=== PATIENT | female | born 1965 | race Caucasian/White ===

== ENCOUNTER 2017-08-30 20:57 | Observation (INO) | payer OTHER ==
[~2017-08-30] VITALS: Ht 160 cm; Wt 80.0 kg
[2017-08-30] MEDS ORDERED: ASPIRIN 81 MG TAB.CHEW ONE (21:00)
[2017-08-30 21:49] LABS: BASO # 0.1 x10^3/uL (0.0-0.2); BASO % 1 % (0-3); EOS # 0.3 x10^3/uL (0.0-0.7); EOS % 4 % (0-3); HEMATOCRIT 41.4 % (36.0-47.0); HEMOGLOBIN 14.2 g/dL (12.0-15.5); LYMPH % 32 % (24-48); MEAN CORPUSCULAR HEMOGLOBIN 31 pg (25-35); MEAN CORPUSCULAR HGB CONC 34 g/dL (31-37); MEAN CORPUSCULAR VOLUME 91 fL (79-100); MONO # 0.8 x10^3/uL (0.0-1.1); MONO % 8 % (0-9); NEUT % 54 % (31-73); PLATELET COUNT 289 x10^3/uL (140-400); RED BLOOD COUNT 4.55 x10^6/uL (3.50-5.40); RED CELL DISTRIBUTION WIDTH 13.3 % (11.5-14.5); WHITE BLOOD COUNT 9.3 x10^3/uL (4.0-11.0)
[2017-08-30 22:00] LABS: BILIRUBIN,URINE NEG (NEG); CLARITY,URINE CLEAR; COLOR,URINE YELLOW; GLUCOSE,URINE NEG (NEG)
[2017-08-30 22:01] LABS: BACTERIA,URINE FEW /HPF (0-FEW); NITRITE,URINE NEG (NEG); RBC,URINE RARE /HPF (0-2); SQUAMOUS EPITHELIAL CELL,UR OCC /LPF; UROBILINOGEN,URINE 1 mg/dL (0.2 mg/dL); WBC,URINE OCC /HPF (0-4)
[2017-08-30 22:04] LABS: ALBUMIN/GLOBULIN RATIO 1.1 (1.0-1.7); CALCIUM 8.8 mg/dL (8.5-10.1); CREATININE 0.7 mg/dL (0.6-1.0); GFR 87.2; TOTAL BILIRUBIN 0.3 mg/dL (0.2-1.0); TOTAL PROTEIN 7.7 g/dL (6.4-8.2)
[2017-08-30 22:10] LABS: POTASSIUM 3.5 mmol/L (3.5-5.1)
--- NOTE | 2017-08-30 22:11 | EKG ---
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
--- NOTE | 2017-08-30 22:37 | PHYS DOC ---
General Chief Complaint: CHEST PAIN Stated Complaint: CHEST PAIN Time Seen by MD: 21:37 Source: patient Exam Limitations: no limitations Problems: History of Present Illness Initial Comments Patient is a 52-year-old female who comes to the ED complaining of chest pain. Patient states that approximately 8:30 PM tonight while sitting on the sofa she experienced 3 separate instances of chest pain. Her chest pains are described as sharp and stabbing the lasting only a few seconds each, not related to by mouth intake or activity. She states that she's having these episodes for the past few weeks and they have been occurring more frequently. She denies diaphoresis arm or neck symptoms nausea vomiting or shortness of breath. She took aspirin prior to coming to the emergency department. Patient's only known coronary artery disease risks are family history with grandparents dying of coronary artery disease/heart attacks in their 50s as well as the patient's age. Based upon her blood pressure readings in the emergency department she may also have some underlying undiagnosed hypertension. Patient has been pain-free in the emergency department her primary care doctor is Dr. Dawkins and she has no prior cardiac workups. Timing/Duration: 1 hour, resolved prior to arrival Severity: moderate Modifying Factors: improves with other Associated Symptoms: chest pain Past Medical History Medical History: no pertinent history Surgical History: no surgical history Social History Smoker: non-smoker Alcohol: none Drugs: none Review of Systems Constitutional: denies chills, denies diaphoresis, denies fever, denies malaise Respiratory: denies cough, denies shortness of breath, denies wheezing Cardiovascular: see HPI, denies palpitations, denies syncope Gastrointestinal: denies abdominal pain, denies nausea, denies vomiting Musculoskeletal: denies back pain, denies joint swelling, denies neck pain Psychiatric/Neurological: denies headache, denies numbness, denies paresthesia Hematologic/Lymphatic: denies blood clots, denies easy bleeding, denies easy bruising Physical Exam General Appearance: WD/WN, no apparent distress Eyes: bilateral eye normal inspection, bilateral eye PERRL, bilateral eye EOMI Ear, Nose, Throat: hearing grossly normal, normal ENT inspection, normal pharynx Neck: non-tender, full range of motion, supple Respiratory: chest non-tender, normal breath sounds, no respiratory distress Cardiovascular: normal peripheral pulses, regular rate, rhythm, other (II/ TRISHA LSB) Gastrointestinal: normal bowel sounds, non tender, soft Back: no CVA tenderness, no vertebral tenderness Extremities: normal range of motion, non-tender, no calf tenderness, pelvis stable, other (2+ pitting LE edema) 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 Interpreted by Dr. Chen. Chest AP: Lung brunner appear clear normal cardiac silhouette no acute cardiopulmonary process noted. Interpreted by Dr. Chen. Emergency Department lab workup unremarkable. 1034: I discussed the patient with Dr. Greco. Although she has atypical chest pains I feel she does have a new heart murmur and may have a valvular abnormality. He is in agreement that she needs to be admitted for serial cardiac enzymes, echocardiogram, and cardiology evaluation tomorrow. He requests the patient be placed in telemetry observation status. Departure Time of Disposition: 22:53 Disposition: 09 ADMITTED INPATIENT Diagnosis: chest pain, new heart murmur Condition: STABLE Additional Instructions: Admit to FREDIS Black DO Aug 30, 2017 22:37
[2017-08-30] MEDS ORDERED: ONDANSETRON PF 4 MG/2 ML VIAL. IV PRN (22:45)
[2017-08-30] MEDS ORDERED: NITROGLYCERIN SUBLINGUAL 0.4 MG BOTTLE OF 25. SL PRN (22:45)
[2017-08-30] MEDS ORDERED: ACETAMINOPHEN 325 MG TABLET PO PRN (22:45)
[2017-08-31 00:14] VITALS: BP 161/76
[2017-08-31] MEDS ORDERED: MULT1TAB52 PO (00:41)
[2017-08-31] MEDS ORDERED: ASPI81TA44 PO (00:41)
[2017-08-31 01:30] VITALS: BP 138/60
[2017-08-31 03:42] VITALS: BP 120/75
[2017-08-31 04:38] LABS: BASO % 1 % (0-3); CALCIUM 8.4 mg/dL (8.5-10.1); CREATININE 0.6 mg/dL (0.6-1.0); EOS # 0.2 x10^3/uL (0.0-0.7); EOS % 3 % (0-3); GFR 104.2; HEMATOCRIT 37.5 % (36.0-47.0); HEMOGLOBIN 13.3 g/dL (12.0-15.5); LYMPH # 1.7 x10^3/uL (1.0-4.8); LYMPH % 27 % (24-48); MEAN CORPUSCULAR HEMOGLOBIN 32 pg (25-35); MEAN CORPUSCULAR HGB CONC 35 g/dL (31-37); MEAN CORPUSCULAR VOLUME 90 fL (79-100); MONO # 0.6 x10^3/uL (0.0-1.1); MONO % 9 % (0-9); NEUT # 3.8 x10^3uL (1.8-7.7); NEUT % 60 % (31-73); PLATELET COUNT 254 x10^3/uL (140-400); POTASSIUM 4.1 mmol/L (3.5-5.1); RED BLOOD COUNT 4.15 x10^6/uL (3.50-5.40); RED CELL DISTRIBUTION WIDTH 13.4 % (11.5-14.5); WHITE BLOOD COUNT 6.4 x10^3/uL (4.0-11.0)
[2017-08-31 05:30] VITALS: BP 121/65
--- NOTE | 2017-08-31 07:38 | RAD ---
Indication: Chest pain. Technique: Upright portable chest radiograph was obtained. No comparison is available. Findings: The lungs are clear. The cardiopulmonary silhouette is within normal limits. The bony structures are intact. Leads overlie the patient. Impression: No active pulmonary disease.
--- NOTE | 2017-08-31 09:08 | PDOC2 ---
CONSULT Date of Admission DATE: 08/31/17 TIME: 09:07 Reason for Consult: cp History of Present Illness Ms Huang is a 52 year old female who presented to the ED with complaints of chest pain. She describes sharp stabbing pain that lasts seconds each episode. She states the pain continued to reoccur so she presented for eval. She denies any associated symptoms or radiation. She does report some chest discomfort off and on over the last 6 months, most often occurring at work. She describes this as a dull pain lasting longer and one episode lasting a couple of hours. She reports radiation up into her neck, jaw and one instance of radiation across her shoulders. She denies associated symptoms with this discomfort as well. She denies dyspnea, palpitations, lightheadedness or congestive symptoms. She denies problems with functional capacity. Past Medical History negative Past Surgical History: Family History father with IL in his 50s Social History no smoking, ETOH or illicit drugs Current Medications Current Medications Aspirin (Children'S Aspirin) 81 mg STK-MED ONCE .ROUTE ; Start 08/30/17 at 21: 00; Stop 08/30/17 at 21:01; Status DC Ondansetron HCl (Zofran) 4 mg PRN Q4HRS PRN IV NAUSEA/VOMITING; Start at 22:45; Stop 08/31/17 at 22:44 Acetaminophen (Tylenol) 650 mg PRN Q4HRS PRN PO FEVER; Start 08/30/17 at 22:45 ; Stop 08/31/17 at 22:44 Nitroglycerin (Nitrostat) 0.4 mg PRN Q5MIN PRN SL CHEST PAIN; Start 08/30/17 at 22:45; Stop 08/31/17 at 22:44 Active Scripts Active Reported Children's Aspirin (Aspirin) 81 Mg Tab.chew 81 Mg PO DAILY Multivitamins (Multivitamin) 1 Each Tablet 1 Tab PO DAILY Allergies: Coded Allergies: No Known Drug Allergies (Unverified , 08/31/17) Review of System as per HPI General: Alert, Oriented X3, Cooperative, No acute distress HEENT: Atraumatic, EOMI, Mucous membr. moist/pink Lungs: Clear to auscultation, Normal air movement Heart: Regular rate, Normal S1, Normal S2, Other (soft systolic murmur) Abdomen: Normal bowel sounds, Soft, No tenderness Extremities: No cyanosis, No edema, Normal pulses Neuro: Normal speech, Strength at 5/5 X4 ext Psych/Mental Status: Mental status NL, Mood NL VITALS Vital Signs Date Time Temp Pulse Resp B/P (MAP) Pulse Ox O2 Delivery O2 Flow Rate FiO2 08/31/17 05:30 97.3 63 14 121/65 (83) 98 Room Air 0.0 Labs Laboratory Tests Test 08/30/17 21:10 08/30/17 21:37 08/31/17 03:45 White Blood Count 9.3 x10^3/uL (4.0-11.0) 6.4 x10^3/uL (4.0-11.0) Red Blood Count 4.55 x10^6/uL (3.50-5.40) 4.15 x10^6/uL (3.50-5.40) Hemoglobin 14.2 g/dL (12.0-15.5) 13.3 g/dL (12.0-15.5) Hematocrit 41.4 % (36.0-47.0) 37.5 % (36.0-47.0) Mean Corpuscular Volume 91 fL (79-100) 90 fL (79-100) Mean Corpuscular Hemoglobin 31 pg (25-35) 32 pg (25-35) Mean Corpuscular Hemoglobin Concent 34 g/dL (31-37) 35 g/dL (31-37) Red Cell Distribution Width 13.3 % (11.5-14.5) 13.4 % (11.5-14.5) Platelet Count 289 x10^3/uL (140-400) 254 x10^3/uL (140-400) Neutrophils (%) (Auto) 54 % (31-73) 60 % (31-73) Lymphocytes (%) (Auto) 32 % (24-48) 27 % (24-48) Monocytes (%) (Auto) 8 % (0-9) 9 % (0-9) Eosinophils (%) (Auto) 4 % (0-3) 3 % (0-3) Basophils (%) (Auto) 1 % (0-3) 1 % (0-3) Neutrophils # (Auto) 5.0 x10^3uL (1.8-7.7) 3.8 x10^3uL (1.8-7.7) Lymphocytes # (Auto) 3.0 x10^3/uL (1.0-4.8) 1.7 x10^3/uL (1.0-4.8) Monocytes # (Auto) 0.8 x10^3/uL (0.0-1.1) 0.6 x10^3/uL (0.0-1.1) Eosinophils # (Auto) 0.3 x10^3/uL (0.0-0.7) 0.2 x10^3/uL (0.0-0.7) Basophils # (Auto) 0.1 x10^3/uL (0.0-0.2) 0.0 x10^3/uL (0.0-0.2) Prothrombin Time 9.8 SEC (9.4-11.4) Prothromb Time International Ratio 1.0 (0.9-1.1) Activated Partial Thromboplast Time 26 SEC (23-33) D-Dimer (Deborah) 0.41 mg/L (0.00-0.50) Sodium Level 139 mmol/L (136-145) 140 mmol/L (136-145) Potassium Level 3.5 mmol/L (3.5-5.1) 4.1 mmol/L (3.5-5.1) Chloride Level 102 mmol/L (98-107) 106 mmol/L (98-107) Carbon Dioxide Level 27 mmol/L (21-32) 27 mmol/L (21-32) Anion Gap 10 (6-14) 7 (6-14) Blood Urea Nitrogen 17 mg/dL (7-20) 21 mg/dL (7-20) Creatinine 0.7 mg/dL (0.6-1.0) 0.6 mg/dL (0.6-1.0) Estimated GFR (Cockcroft-Gault) 87.2 104.2 BUN/Creatinine Ratio 24 (6-20) Glucose Level 170 mg/dL (70-99) 95 mg/dL (70-99) Calcium Level 8.8 mg/dL (8.5-10.1) 8.4 mg/dL (8.5-10.1) Total Bilirubin 0.3 mg/dL (0.2-1.0) Aspartate Amino Transf (AST/SGOT) 17 U/L (15-37) Alanine Aminotransferase (ALT/SGPT) 28 U/L (14-59) Alkaline Phosphatase 99 U/L (46-116) Creatine Kinase 96 U/L (26-192) Troponin I Quantitative < 0.017 ng/mL (0-0.055) < 0.017 ng/mL (0-0.055) [id number]-[id number]-Type Natriuretic Peptide 24 pg/mL (0-124) Total Protein 7.7 g/dL (6.4-8.2) Albumin 4.0 g/dL (3.4-5.0) Albumin/Globulin Ratio 1.1 (1.0-1.7) Lipase 162 U/L (73-393) Urine Collection Type Unknown Urine Color Yellow Urine Clarity Clear Urine pH 7.0 Urine Specific [place] 1.015 Urine Protein Neg (NEG-TRACE) Urine Glucose (UA) Neg mg/dL (NEG) Urine Ketones (Stick) Neg mg/dL (NEG) Urine Blood Small (NEG) Urine Nitrite Neg (NEG) Urine Bilirubin Neg (NEG) Urine Urobilinogen Dipstick 1 mg/dL (0.2 mg/dL) Urine Leukocyte Esterase Neg (NEG) Urine RBC Rare /HPF (0-2) Urine WBC Occ /HPF (0-4) Urine Squamous Epithelial Cells Occ /LPF Urine Bacteria Few /HPF (0-FEW) Images EKG - sinus rhythm, LAFB, non specific abn CXR - Impression: No active pulmonary disease. Assessment/Plan 1. Chest pain - IL ruled out. continue aspirin. start beta josafat. check lipids. 2. Abn EKG - no acute ischemic changes 3. hypertension - will start beta josafat 4. family history of premature coronary disease Current chest pain atypical in nature. Periodic chest pain suspicious for angina. Will start beta blockers, continue aspirin and recommend echo and MPI. Could be completed outpatient early this week if possible. Problems: KELSEY FIERRO APRN Aug 31, 2017 09:08
[2017-08-31] MEDS ORDERED: METOPROLOL TART IMMED RELEASE 25 MG TABLET PO SCH (10:00)
[2017-08-31] MEDS ORDERED: MULTIVITAMIN with MINERAL TABLET. PO SCH (10:00)
[2017-08-31] MEDS ORDERED: ASPIRIN 81 MG TAB.CHEW PO SCH (10:00)
[2017-08-31] MEDS ORDERED: NITR0.4T SL (10:11)
[2017-08-31 10:28] VITALS: BP 121/65
--- NOTE | 2017-08-31 10:54 | HP ---
ADMIT DATE: 08/31/2017 HISTORY OF PRESENT ILLNESS: A 52-year-old female in with chest pain, came in through the Emergency Room, ____ of sharp stabbing sensation within the chest with some shortness of breath. The patient denied any nausea, vomiting, or diaphoresis. The patient came in through the Emergency Room. There are some risk factors including a strong family history for heart disease in their 50s. As a result of this, the patient was brought in for further evaluation and rule out [place] protocol, and Cardiology consultation. PAST MEDICAL HISTORY: The patient has had history of angina, possible heart murmur, and x 3. FAMILY HISTORY: Positive for COPD in the mother and heart attack in the father. ALLERGIES: THE PATIENT HAS NO KNOWN DRUG ALLERGIES. HOME MEDICATIONS: Aspirin and multivitamin. SOCIAL HISTORY: The patient denies smoking, alcohol, or drug use. REVIEW OF SYSTEMS: Denies any headaches, visual changes, blurred vision, double vision. Denies any nausea, vomiting, diaphoresis, abdominal pain. Denies any melena, hematochezia, hematemesis. Neurologically, intact. PHYSICAL EXAMINATION: GENERAL: Pleasant white female in no apparent distress. VITAL SIGNS: Blood pressure 160/76, respiratory rate 18, pulse 77, temperature 100 degrees. The patient has come down defervesced on her temperature. NEUROLOGIC: The patient is otherwise alert and oriented x 3. Speech fluent, spontaneous, appropriate. Cranial nerves 2-12 grossly intact. LUNGS: Diminished, but clear. CARDIOVASCULAR: Regular sinus rhythm. S1, S2, without murmur, rub, thrill, or extra heart sounds. ABDOMEN: Soft, nontender, no rebound or guarding, positive bowel sounds, no hepatosplenomegaly was noted. EXTREMITIES: No clubbing, cyanosis, or edema. NEUROLOGIC: The patient is alert and oriented x 3. LABORATORY DATA AND IMAGING: Chest x-ray was negative. Cardiac enzymes so far have been negative. Blood sugar was elevated at first 170, came down to 95. Sodium, potassium, BUN, and creatinine all within normal limits as was her CBC, UA, and her D-dimer. IMPRESSION: Chest pain, rule out coronary artery disease, strong family history of heart disease at an early age. The patient will be monitored carefully. Rule out [place] protocol, Cardiology consultation and make further evaluation once they have completed their evaluation. VASQUEZ ROWAN MD DR: THU/justin JOB#: [id number] / [id number]
[2017-08-31] MEDS ORDERED: METO25TA4 PO (10:55)
== END 2017-08-31 11:05 | disposition home or self-care (01) ==
LOC: ER 20:57 → ICU 22:41
PROVIDERS: ADMIT Family Medicine; ATTEND Family Medicine
DX: R07.9 Chest pain, unspecified (principal); I10 Essential (primary) hypertension; R94.31 Abnormal electrocardiogram [ECG] [EKG]; Z82.49 Family history of ischemic heart disease and other diseases of the circulatory system; Z82.5 Family history of asthma and other chronic lower respiratory diseases
CPT/HCPCS: 36415; 71010; 80048; 80053; 81001; 82550; 83690; 83880; 84484; 85025; 85379; 85610; 85730; 87641; 93005; 99285; G0378; G0379

== ENCOUNTER 2018-10-11 09:58 | Observation (INO) | payer OTHER ==
[~2018-10-11] VITALS: Ht 160 cm; Wt 86.4 kg
[~2018-10-11 09:58] MED LIST: ASPI81TA59 PO; CHOL10003 PO; HYDR-3165 PO; LEVO50TA5 PO; METO25TA4 PO; MULT1TAB52 PO; NITR0.4T SL
[2018-10-11 10:15] VITALS: BP 151/88
[2018-10-11] MEDS ORDERED: ATOR10TA60 PO (10:44)
[2018-10-11] MEDS ORDERED: LEVO75TA5 PO (10:44)
[2018-10-11] MEDS ORDERED: ONDANSETRON ODT 4 MG TAB.RAPDIS PO PRN (12:30)
[2018-10-11 12:40] LABS: BASO % 0 % (0-3); EOS % 0 % (0-3); HEMATOCRIT 39.1 % (36.0-47.0); HEMOGLOBIN 13.4 g/dL (12.0-15.5); LYMPH # 0.8 x10^3/uL (1.0-4.8); LYMPH % 26 % (24-48); MEAN CORPUSCULAR HEMOGLOBIN 31 pg (25-35); MEAN CORPUSCULAR HGB CONC 34 g/dL (31-37); MEAN CORPUSCULAR VOLUME 89 fL (79-100); MONO # 0.3 x10^3/uL (0.0-1.1); MONO % 10 % (0-9); NEUT # 1.9 x10^3uL (1.8-7.7); NEUT % 63 % (31-73); PLATELET COUNT 216 x10^3/uL (140-400); RED BLOOD COUNT 4.39 x10^6/uL (3.50-5.40); RED CELL DISTRIBUTION WIDTH 13.5 % (11.5-14.5)
[2018-10-11] MEDS ORDERED: IV NORMAL SALINE 500ML 500 ML IV ONE (12:45)
[2018-10-11] MEDS: IV NORMAL SALINE 1,000ML 1,000 ML IV SCH ×2 (12:47→22:02)
[2018-10-11 13:05] LABS: ALBUMIN 3.3 g/dL (3.4-5.0); ALBUMIN/GLOBULIN RATIO 0.9 (1.0-1.7); CALCIUM 8.4 mg/dL (8.5-10.1); CREATININE 0.8 mg/dL (0.6-1.0); GFR 74.5; POTASSIUM 3.5 mmol/L (3.5-5.1); TOTAL BILIRUBIN 0.4 mg/dL (0.2-1.0); TOTAL PROTEIN 7.1 g/dL (6.4-8.2)
[2018-10-11] MEDS ORDERED: IOHEXOL 300 MG/ML 75 ML VIAL. IV ONE ×2 (13:10→14:30)
[2018-10-11 13:13] LABS: BACTERIA,URINE MOD /HPF (0-FEW); BILIRUBIN,URINE NEG (NEG); CLARITY,URINE HAZY; COLOR,URINE YELLOW; GLUCOSE,URINE NEG (NEG); NITRITE,URINE NEG (NEG); SQUAMOUS EPITHELIAL CELL,UR MOD /LPF; UROBILINOGEN,URINE 0.2 mg/dL (0.2 mg/dL)
[2018-10-11 13:21] LABS: INFLUENZA A PATIENT NEGATIVE (NEGATIVE)
[2018-10-11 13:22] LABS: INFLUENZA B PATIENT NEGATIVE (NEGATIVE)
--- NOTE | 2018-10-11 15:08 | RAD ---
EXAM: Abdomen and pelvis CT without intravenous contrast. HISTORY: Hematuria and back pain. TECHNIQUE: Computed tomographic images of the abdomen and pelvis were obtained without contrast. Multiplanar reformatting was performed. *One or more of the following individualized dose reduction techniques were utilized for this examination: 1. Automated exposure control. 2. Adjustment of the mA and/or kV according to patient size. 3. Use of iterative reconstruction technique. COMPARISON: None. FINDINGS: Evaluation of the lower thorax demonstrates right middle lobe and lingular pleural parenchymal scarring. No suspicious infiltrate or nodule is seen. There is a tiny hiatal hernia. No hepatic lesion is seen. The gallbladder, pancreas, spleen and adrenal glands are unremarkable. There are right renal parapelvic cysts. There is no evidence of nephroureterolithiasis or obstructive uropathy. The bladder is empty. The uterus is slightly lobulated, likely due to small fibroids. The appendix is normal in appearance. No abnormally thickened or dilated loop of bowel is seen. There is distal colonic diverticulosis. The adnexal regions are unremarkable. There is no lymphadenopathy. There is a small fat-containing umbilical hernia. There is no suspicious osseous lesion. IMPRESSION: 1. No evidence of nephroureterolithiasis or obstructive uropathy. There are small right renal parapelvic cysts. 2. Colonic diverticulosis. 3. Tiny hiatal hernia and fat-containing umbilical hernia. 4. Slightly lobulated uterine contour. This may be physiologic or due to small fibroids. Electronically signed by: Yuly Larkin MD (10/11/2018 3:05 PM) [id number]
[2018-10-11 15:17] VITALS: BP 153/89
--- NOTE | 2018-10-11 15:47 | RAD ---
CLINICAL HISTORY: INCREASED D-DIMER, CHEST PAIN, OMNI 300 75ML. COMPARISON: None. TECHNIQUE: CT of the chest following the administration of intravenous contrast during the pulmonary arterial phase. Axial, coronal and sagittal reformatted images were generated including MIP images. ---PQRS compliance statement - One or more of the following individualized dose reduction techniques were utilized for this study: 1. Automated exposure control 2. Adjustment of the mA and/or kV according to patient size 3. Use of iterative reconstruction technique--- FINDINGS: CHEST: Diagnostic quality: Markedly suboptimal. Hounsfield units within the central pulmonary arterial trunk measures approximately 190. Pulmonary emboli: No definite pulmonary embolus within the pulmonary arterial trunk and main pulmonary arteries. Distal evaluation is limited. Right heart strain: None Pulmonary arteries: Normal in caliber. The heart is not enlarged. Trace pericardial fluid is likely physiologic. No pleural effusion or pneumothorax. No mediastinal or hilar lymphadenopathy by size criteria. No axillary lymphadenopathy. Linear opacities in the lingula and left lower lobe likely scarring/atelectasis. No suspicious lung nodule or mass is seen. Visualized Upper abdomen: Diffuse hepatic hypoattenuation may be seen with hepatic steatosis or be sequelae of phase of contrast. Bones: Degenerative changes of the spine are seen. IMPRESSION: 1. Based on contrast bolus timing, this CT is markedly suboptimal for the evaluation of acute pulmonary embolus. Within these constraints, no definite pulmonary arterial trunk or proximal main pulmonary arterial embolus is identified. Distal evaluation is limited. 2. Diffuse hepatic hypoattenuation may be seen with hepatic steatosis or be sequelae of phase of contrast. Electronically signed by: Ad Vyas MD (10/11/2018 3:44 PM) [id number]
[2018-10-11 19:33] VITALS: BP 132/82
[2018-10-11] MEDS ORDERED: ACETAMINOPHEN 325 MG TABLET PO PRN (21:30)
[2018-10-11 22:48] VITALS: BP 119/77
[2018-10-12 05:04] VITALS: BP 122/82
[2018-10-12] MEDS: IV NORMAL SALINE 1,000ML 1,000 ML IV SCH ×2 (06:22→12:00)
[2018-10-12 07:58] LABS: BASO % 1 % (0-3); EOS # 0.1 x10^3/uL (0.0-0.7); EOS % 4 % (0-3); HEMATOCRIT 40.6 % (36.0-47.0); HEMOGLOBIN 13.7 g/dL (12.0-15.5); LYMPH # 0.9 x10^3/uL (1.0-4.8); LYMPH % 37 % (24-48); MEAN CORPUSCULAR HEMOGLOBIN 30 pg (25-35); MEAN CORPUSCULAR HGB CONC 34 g/dL (31-37); MEAN CORPUSCULAR VOLUME 90 fL (79-100); MONO # 0.4 x10^3/uL (0.0-1.1); MONO % 16 % (0-9); NEUT # 1.1 x10^3uL (1.8-7.7); NEUT % 44 % (31-73); PLATELET COUNT 203 x10^3/uL (140-400); RED BLOOD COUNT 4.54 x10^6/uL (3.50-5.40); RED CELL DISTRIBUTION WIDTH 13.3 % (11.5-14.5); WHITE BLOOD COUNT 2.6 x10^3/uL (4.0-11.0)
[2018-10-12 08:10] LABS: CALCIUM 8.1 mg/dL (8.5-10.1); CREATININE 0.7 mg/dL (0.6-1.0); GFR 86.9; POTASSIUM 3.5 mmol/L (3.5-5.1)
[2018-10-12 10:45] VITALS: BP 125/75
--- NOTE | 2018-10-12 11:49 | RAD ---
Ventilation/perfusion lung scan, 10/12/2018: HISTORY: Elevated d-dimer The ventilation imaging was performed utilizing 12 mCi of xenon-133. There is heterogeneous activity in both lungs. There is retention of activity in both lungs on the washout phase, greatest in the right lower chest. Perfusion imaging was performed following IV injection of 5.5 mCi of technetium 99m M MAA. There is a perfusion defect in the right middle lobe which appears to correspond to the area of prominent air trapping seen on the ventilation study. No other significant perfusion abnormality is seen. IMPRESSION: 1. Heterogeneous ventilation with air trapping in the right lower chest. 2. Right middle lobe perfusion defect corresponding to the area of abnormal ventilation. This is not the typical appearance of pulmonary embolic disease, although a single right middle lobe embolus cannot be entirely excluded. Electronically signed by: Surendra Bravo MD (10/12/2018 11:46 AM) [facility]
== END 2018-10-12 10:00 | disposition home or self-care (01) ==
LOC: INTOOBSV 09:58 → 1 SOUTH 09:58
PROVIDERS: ADMIT Family Medicine; ATTEND Family Medicine
DX: M54.5 Low back pain (principal); R11.10 Vomiting, unspecified; E86.0 Dehydration; R31.9 Hematuria, unspecified
CPT/HCPCS: 36415; 71275; 74176; 78579; 80048; 80053; 81001; 83605; 85025; 85379; 87086; 87804; 96360; 96361; A9540; A9558; G0378; G0379; J7040; Q9967; J7030